=== PATIENT | female | born 1965 | race Caucasian/White ===

== ENCOUNTER → 2020-04-12 | Outpatient (CLI) | payer BC ==
[~2020-04-12] MED LIST: CYCL-259 PO; HYDR-3240 PO
[2020-04-12 12:45] LABS: BASOPHILS # (AUTO) 0.02 x10^3/uL (0-0.1); BASOPHILS % (AUTO) 0 % (0-1); EOSINOPHILS # (AUTO) 0.08 x10^3/uL (0-0.4); EOSINOPHILS % (AUTO) 1 % (1-7); LYMPHOCYTES # (AUTO) 2.58 x10^3/uL (1-3.4); LYMPHOCYTES % (AUTO) 32 % (22-44); MD NO; MEAN CORPUSCULAR HGB CONC 32.7 g/dL (32.4-35.8); MEAN CORPUSCULAR VOLUME 88.7 fL (80-100); MEAN PLATELET VOLUME 7.8 fL (7.4-10.4); MONOCYTES # (AUTO) 0.76 x10^3/uL (0.2-0.8); MONOCYTES % (AUTO) 9 % (2-9); NEUTROPHILS # (AUTO) 4.68 x10^3/uL (1.8-6.8); NEUTROPHILS % (AUTO) 58 % (42-75); PLATELET COUNT 499 x10^3/uL (130-400); RED BLOOD COUNT 4.85 x10^6/uL (3.82-5.3); RED CELL DISTRIBUTION WIDTH 14.3 % (9.6-15.2)
[2020-04-12 13:21] LABS: MICROSCOPIC AUTO
== END | disposition home or self-care (01) ==
LOC: STAR 11:23 → EDBD 11:30
PROVIDERS: ATTEND Obstetrics & Gynecology
DX: Z01.818 Encounter for other preprocedural examination (principal); Z11.59 Encounter for screening for other viral diseases; N95.0 Postmenopausal bleeding
CPT/HCPCS: 36415; 81001; 85025; 93005; U0001

== ENCOUNTER 2020-04-15 05:40 | Day surgery (SDC) | payer BC ==
[2020-04-12 11:53] VITALS: BP 140/95
[2020-04-13 09:15] LABS: HCG UR SG 1.018 (1.003-1.030)
[~2020-04-15] VITALS: Ht 167.6 cm; Wt 105.0 kg
[~2020-04-15 05:40] MED LIST changes: +LACTATED RINGERS 1,000 ML IV SCH
[2020-04-15] MEDS ORDERED: LACTATED RINGERS 1,000 ML IV SCH (06:11)
[2020-04-15 06:16] VITALS: BP 138/94
[2020-04-15] MEDS ORDERED: GABAPENTIN 300 MG CAPSULE PO ONE (06:30)
[2020-04-15] MEDS ORDERED: ACETAMINOPHEN 500 MG TABLET PO ONE (06:30)
[2020-04-15] MEDS ORDERED: LIDOCAINE-MPF 1%, 2ML INFIL ONE (06:30)
[2020-04-15] MEDS ORDERED: CHLORHEXIDINE 15 ML UDC MM ONE (06:30)
[2020-04-15] MEDS ORDERED: FLUORESCEIN SODIUM 500 MG/5 ML ONE (06:55)
[2020-04-15] MEDS ORDERED: BUPIVACAINE/PF-EPI 0.25% 1:200K ONE (06:55)
[2020-04-15] MEDS ORDERED: MIDAZOLAM 1 MG/ML, 2ML ONE (07:19)
[2020-04-15] MEDS ORDERED: FENTANYL PF 250 MCG/5ML ONE (07:19)
[2020-04-15] MEDS ORDERED: NEOSTIGMINE 1 MG/ML, 10ML ONE (07:31)
[2020-04-15] MEDS ORDERED: PROPOFOL 10 MG/ML, 50ML ONE (07:31)
[2020-04-15] MEDS ORDERED: DEXAMETHASONE 4 MG/ML, 1ML ONE (07:31)
[2020-04-15] MEDS ORDERED: GLYCOPYRROLATE 0.2MG/1ML, 5ML ONE (07:31)
[2020-04-15] MEDS ORDERED: ONDANSETRON 2MG/ML, 2ML ONE (07:31)
[2020-04-15] MEDS ORDERED: PROPOFOL 10 MG/ML, 20ML ONE (07:31)
[2020-04-15] MEDS ORDERED: ROCURONIUM 10 MG/ML,10ML ONE (07:31)
[2020-04-15] MEDS ORDERED: CEFAZOLIN 1,000 MG ONE (07:31)
[2020-04-15] MEDS ORDERED: SUCCINYLCHOLINE 20 MG/ML, 10ML ONE (07:31)
[2020-04-15] MEDS ORDERED: LABETALOL 5MG/ML, 20ML IV PRN (08:30)
[2020-04-15] MEDS ORDERED: ONDANSETRON 2MG/ML, 2ML IVPush PRN (08:30)
[2020-04-15] MEDS ORDERED: hydrALAzine 20 MG/ML, 1ML IV PRN (08:30)
[2020-04-15] MEDS ORDERED: HYDROmorphone 1 MG/ML, 1ML INJ IVPush PRN (08:30)
[2020-04-15] MEDS ORDERED: FENTANYL PF 100 MCG/2ML ONE ×4 (08:37→09:35)
[2020-04-15] MEDS ORDERED: OXYcodone 5 MG/5 ML ORAL.SOL UDC ONE (08:59)
[2020-04-15] MEDS: FENTANYL PF 100 MCG/2ML IV PRN ×5 (09:06→09:37)
[2020-04-15] MEDS: OXYcodone 5 MG/5 ML ORAL.SOL UDC PO PRN ×2 (09:22→14:06)
[2020-04-15] MEDS ORDERED: HYDROmorphone 1 MG/ML, 1ML INJ ONE (09:35)
[2020-04-15] MEDS ORDERED: ENOXAPARIN 40 MG/0.4 ML SQ SCH (10:00)
[2020-04-15] MEDS ORDERED: IBUPROFEN 600 MG TABLET ONE (14:09)
[2020-04-15] MEDS ORDERED: IBUPROFEN 600 MG TABLET PO PRN (14:30)
== END 2020-04-15 14:55 | disposition home or self-care (01) ==
LOC: EDBD → OUT 05:40
PROVIDERS: ATTEND Obstetrics & Gynecology
DX: N95.0 Postmenopausal bleeding (principal); N80.0 Endometriosis of uterus; N83.8 Other noninflammatory disorders of ovary, fallopian tube and broad ligament; N73.6 Female pelvic peritoneal adhesions (postinfective); R10.2 Pelvic and perineal pain; G43.909 Migraine, unspecified, not intractable, without status migrainosus; F32.9 Major depressive disorder, single episode, unspecified; Z79.891 Long term (current) use of opiate analgesic; Z79.899 Other long term (current) drug therapy; Z88.5 Allergy status to narcotic agent; Z85.828 Personal history of other malignant neoplasm of skin; Z90.49 Acquired absence of other specified parts of digestive tract; Z98.890 Other specified postprocedural states; Z83.3 Family history of diabetes mellitus
CPT/HCPCS: 36415; 58552; 81025; 85014; 85018; 86850; 86900; 88307; J0330; J0690; J1100; J1170; J1650; J2250; J2405; J2704; J2710; J3010; J7120

== ENCOUNTER 2020-05-13 13:17 | Emergency (ER) | payer BC ==
[~2020-05-13] VITALS: Ht 170.2 cm; Wt 105.4 kg
[~2020-05-13 13:17] MED LIST changes: -LACTATED RINGERS 1,000 ML IV SCH
[2020-05-13 13:20] VITALS: BP 168/97
[2020-05-13] MEDS ORDERED: ACETAMINOPHEN 500 MG TABLET ONE (13:53)
[2020-05-13] MEDS ORDERED: ACETAMINOPHEN 500 MG TABLET PO ONE (14:00)
--- NOTE | 2020-05-13 14:07 | NUR ---
PT MEDICATED PER MAR, AWAITING DUPLEX OF RLE. NAD NOTED
--- NOTE | 2020-05-13 15:21 | NUR ---
ASSUMED CARE. ULTRASOUND AT BEDSIDE
== END 2020-05-13 15:53 | disposition home or self-care (01) ==
LOC: ED 15:19
DX: M79.661 Pain in right lower leg (principal); Z90.710 Acquired absence of both cervix and uterus
CPT/HCPCS: 99284

== ENCOUNTER → 2020-07-30 | Outpatient (CLI) | payer BC | END | disposition home or self-care (01) | LOC: CVU 07:28 | PROVIDERS: ATTEND Internal Medicine Cardiovascular Disease | DX: I35.8 Other nonrheumatic aortic valve disorders (principal); I71.2 Thoracic aortic aneurysm, without rupture | CPT/HCPCS: 93306; 93356 ==